=== PATIENT | female | born 1970 | race Hispanic/Latino ===

== ENCOUNTER → 2023-10-22 09:05 | Outpatient (REF) | payer OTHER, SELFPAY | LOC: HWRAD 09:05 | PROVIDERS: ATTENDING PHYSICIAN Family Medicine | DX: Z12.31 Encounter for screening mammogram for malignant neoplasm of breast (principal); R22.42 Localized swelling, mass and lump, left lower limb | CPT/HCPCS: 76882; 77063; 77067 ==

== ENCOUNTER 2023-11-17 18:52 | Emergency (ER) | payer OTHER, SELFPAY ==
[2023-11-17 18:54] VITALS: BP 143/98
[2023-11-17 19:16] VITALS: BP 144/94
[2023-11-17 19:18] VITALS: BP 144/94
[2023-11-17 19:21] VITALS: BMI 23.8
[2023-11-17] MEDS: NSS 1000 IV (19:36)
[2023-11-17 19:37] LABS: % Basophils 0.4 % (0-2); % Eosinophils 0.4 % (0-6); % Immature Granulocytes 0.4 % (0-0.5); % Lymphocytes 29.8 % (20.5-51.1); % Monocytes 5.4 % (1.7-9.3); % Neutrophils 63.6 % (42.2-75.2); Absolute Lymphocytes 2.2 10^3/uL (1.2-3.4); Absolute Monocytes 0.4 10^3/uL (0.1-0.6); Absolute Neutrophils 4.6 10^3/uL (1.4-6.5); Hematocrit 36.7 % (37.0-47.0); Hemoglobin 12.8 g/dL (12.0-16.0); Mean Corp Hgb Conc. 34.9 g/dL (33.0-37.0); Mean Corpuscular Hgb 31.2 pg (27.0-31.0); Mean Corpuscular Volume 89.5 fL (81.0-99.0); Mean Platelet Volume 9.6 fL (7.4-10.4); Nucleated Red Blood Cells % 0 %; Platelet Count 351 10^3/uL (130-400); Red Cell Dist. Width 11.8 % (11.5-14.5); White Blood Cell Count 7.3 10^3/uL (4.8-10.8)
--- NOTE | 2023-11-17 19:39 | ED.GENMED ---
History of Present Illness
General
Chief Complaint: Heart Rate Problem
Source: patient
Exam Limitations: none
Time Seen by Provider: 11/17/23 19:11
Travel History
Have you had any contact with someone who has COVID-19?: No
Do you have any symptoms of coronavirus? Fever > 100 degrees, chills, cough, shortness of breath, sore throat, loss of taste or smell, muscle aches, or headache?: No
History of Present Illness
History of Present Illness:
This is a 53 year old female that comes in with c/o elevated heart rate. States that this started about 1 hour ago. States that for the first time she took Propranolol 10mg which she had been ordered before and never took. Denies any fever, chills,
chest pain, SOB, abd pain, nausea, vomiting, diarrhea, headache, dizziness, urinary burning.
Past History
Past History
ED Past Medical History: GERD, Psychiatric (Anxiety) and Other (Palpitations, ); Negative Asthma, HTN, Hypercholesterolemia or NIDDM
ED Past Surgical History: Other (Partial Thyroidectomy Left side removed)
Patient has exhibited threatening behavior?: No
PSI?: No
Social History
Tobacco: Non-smoker
Alcohol: None
Drug: None
Personal:
Living: with family
Employment: Employed
Family History
Family History: Other
Review of Systems
Review of Systems
All Other Systems: ROS reviewed and negative except as documented in HPI and ROS
Constitutional: Reports no symptoms; Denies fever or chills
EENT: Reports no symptoms
Respiratory: Reports no symptoms; Denies cough or trouble breathing
Cardiac: Reports other (tachycardia); Denies chest pain
ABD/GI: Reports no symptoms; Denies abdominal pain, nausea, vomiting or diarrhea
: Reports no symptoms; Denies dysuria, frequency or urgency
Musculoskeletal: Reports no symptoms
Skin: Reports no symptoms
Neurological: Reports no symptoms; Denies dizzy or headache
Psychiatric: Reports no symptoms
Phy Exam
General Physical Exam
General Presentation: well appearing and no apparent distress
General age: appears stated age
General Skin: warm and dry
General Habitus: normal
General Mental: alert
General Hydration: dry mucous membranes
ENT Exam
ENT Exam: TM's normal, pharynx normal and neck supple
Eye Exam
Eye Exam: EOMI
Cardiovascular Exam
Cardiovascular Exam: no edema, no murmur, normal peripheral pulses and tachycardia
Pulmonary Exam
Pulmonary Exam: lungs clear, no respiratory distress, no rales, chest non tender, no crackles, no rhonchi, no wheezing and no cough
Gastrointestinal Exam
Gastrointestinal Exam: normal bowel sounds, non tender, soft, no organomegaly, no pulsatile mass and non distended
Musculoskeletal Exam
Musculoskeletal Exam: full ROM and no edema
Skin Exam
Skin Exam: normal color, warm/dry, no rash and no petechia
Psychiatric Exam
Psychiatric Exam: normal mood/affect
Course
Orders/Labs/Results
Orders:
Orders
11/17/23 18:53
Electrocardiogram (*1) Urgent
Reason for Study: Tachycardia
EKG- Treatment ONCE
11/17/23 19:22
0.9% Sodium Chloride 1000 ml [Nss] 1,000 ml IV BOLUS
11/17/23 19:31
Complete Blood Count/With Diff Urgent
Comprehensive Metabolic Panel Urgent
TSH Reflex To Free T4 Urgent
Abnormal Lab Results
11/17/23
19:31
RBC 4.10 L 10^6/uL
(4.20-5.40)
Hct 36.7 L %
(37.0-47.0)
MCH 31.2 H pg
(27.0-31.0)
Glucose 118 H mg/dl
(70-99)
Total Protein 8.4 H g/dl
(6.3-8.2)
11/17/23 19:31
11/17/23 19:31
Glucose nonfasting. Total protein slightly elevated. TSH normal at 3.63
Vital Signs
Initial and Last Documented VS:
Initial Vital Signs
Temp Pulse Resp BP Pulse Ox
97.7 F 118 16 143/98 99
11/17/23 18:54 11/17/23 18:54 11/17/23 18:54 11/17/23 18:54 11/17/23 18:54
Last Documented Vital Signs
Temp Pulse Resp BP Pulse Ox
97.7 F 104 17 144/94 100
11/17/23 18:54 11/17/23 19:18 11/17/23 19:18 11/17/23 19:18 11/17/23 19:18
MDM/Problems Addressed
Differential Diagnosis Includes:
tachycardia, Hypothyroid
MDM/Problems Addressed:
This is a 53 year old female that comes in with c/o of increased heart rate. State that this started 1 hour before arriving here. Patient was given Propranolol for his in the past but she never took.
Will check labs and monitor.
Back into see patient. Explained that her blood work is normal. Patients heart rate is 85. Encouraged patient to increase her water intake to 8-8oz glasses daily. Take her medication daily as prescribed. Follow up with the family doctor. Return with
any concerns.
Chronic conditions affecting care:
NA
Acute Exacerbation and/or Progression of Chronic Illness:
NA
*Pulse Oximetry
Patient hypoxic: no
*EKG
Interpreted by ED Provider?: Yes
Heart Rate: 109
Rate: tachycardiac
Rhythm: PVC's and sinus tachycardia
[place]: normal axis
Interval: normal interval
QRS Pattern: normal QRS
Ischemia: no ischemia
*Career Guidance Counselor Interpretation
Rate: normal
Heart Rate: 85
Rhythm: sinus
*Critical Care Note
Total Time (30-74mins, 75-104mins- exclusive of procedures): Not Applicable
ED Attending Note
-
Portions of this chart may have been created with voice recognition software.� Occasional wrong word or��sound alike� substitutions may have occurred due to the inherent limitations of voice recognition software.
Discharge Plan
Departure
Patient Disposition: Home (Routine Discharge)
Date of Disposition: 11/17/23
Time of Disposition: 21:13
Patient with high blood pressure during this ER visit?: Yes
Condition: Good
Covid-19: Not Applicable
Discharge Problem:
Sinus tachycardia
Instructions: Sinus Tachycardia (DC), BLOOD PRESSURE
Prescriptions:
No Action
prednisone 10 mg Tablet
See Rx Instructions .ROUTE .COMPLEX Qty: 30 0RF
Rx Instructions:
Take By Mouth:
40 mg daily x3 days, 30 mg daily x3 days,
20 mg daily x3 days, 10 mg daily x3 days.
oxycodone-acetaminophen [Percocet] 5-325 mg tablet
1 tab PO Q6HPRN PRN (Reason: pain) Qty: 7 0RF
Referrals:
Marky Ramirez Jr., MD [Family Provider] - Call in 1-3 days for appt
Activity Restrictions/Additional Instructions:
As discussed, your blood work is normal. You heart rate has come down most likely due to the fluid and the Propranolol. Please take your medication as prescribed. Follow up with the family doctor for recheck. Please increase your water intake to
8-8oz glasses daily. IF YOU HAVE ANY OTHER CONCERNS PLEASE RETURN TO THE EMERGENCY ROOM.
Interventions
Interventions:
*Risk Screen - Suicide Last Done: 11/17/23 18:54
*General Assessment Last Done: 11/17/23 18:54
*Neglect/Abuse Screening Last Done: 11/17/23 18:54
Discharge Date and Time
Print Language: CITIZEN OF [place]
[2023-11-17 19:49] LABS: ALT (SGPT) 15 U/L (0-35); AST (SGOT) 24 U/L (14-36); Albumin 4.9 g/dl (3.5-5.0); Alkaline Phosphatase 68 U/L (38-126); Blood Urea Nitrogen 16 mg/dl (7-17); Calcium 10.1 mg/dl (8.4-10.2); Carbon Dioxide 28 mmol/L (22-30); Chloride 101 mmol/L (98-107); Estimated Creatinine Clearance 69 ml/min; Glucose 118 mg/dl (70-99); Potassium 4.5 mmol/L (3.5-5.1); Sodium 135 mmol/L (135-145); Total Bilirubin 0.2 mg/dl (0.2-1.3); Total Protein 8.4 g/dl (6.3-8.2); eGFR > 60.00
[2023-11-17 20:09] VITALS: BP 132/84
[2023-11-17 20:22] LABS: TSH Reflex To Free T4 3.63 uIU/ml (0.47-4.68)
[2023-11-17 21:00] VITALS: BP 110/73
== END 2023-11-17 21:34 | disposition home or self-care (01) ==
LOC: EMR 18:52
PROVIDERS: Clinical Nurse Specialist Family Health; EMERGENCY PHYSICIAN Emergency Medicine; FAMILY PHYSICIAN Family Medicine
DX: R00.0 Tachycardia, unspecified (principal); I49.3 Ventricular premature depolarization; R03.0 Elevated blood-pressure reading, without diagnosis of hypertension
CPT/HCPCS: 99284; 96360; 80053; 84443; 85025; 93005

== ENCOUNTER 2023-12-22 21:00 | Emergency (ER) | payer OTHER, SELFPAY ==
[2023-12-22 21:08] VITALS: BP 134/77
[2023-12-22 21:27] VITALS: BP 105/69
[2023-12-22 21:45] VITALS: BMI 24.2
[2023-12-22 21:51] LABS: % Basophils 0.5 % (0-2); % Eosinophils 0.9 % (0-6); % Immature Granulocytes 0.3 % (0-0.5); % Lymphocytes 39.8 % (20.5-51.1); % Monocytes 8.3 % (1.7-9.3); % Neutrophils 50.2 % (42.2-75.2); Absolute Eosinophils 0.1 10^3/uL (0-0.7); Absolute Lymphocytes 3.2 10^3/uL (1.2-3.4); Absolute Monocytes 0.7 10^3/uL (0.1-0.6); Hematocrit 31.6 % (37.0-47.0); Hemoglobin 11.2 g/dL (12.0-16.0); Mean Corp Hgb Conc. 35.4 g/dL (33.0-37.0); Mean Corpuscular Hgb 31.5 pg (27.0-31.0); Mean Platelet Volume 9.6 fL (7.4-10.4); Nucleated Red Blood Cells % 0 %; Platelet Count 301 10^3/uL (130-400); Red Blood Cell Count 3.55 10^6/uL (4.20-5.40)
[2023-12-22 22:08] LABS: ALT (SGPT) 11 U/L (0-35); AST (SGOT) 20 U/L (14-36); Albumin 3.8 g/dl (3.5-5.0); Blood Urea Nitrogen 15 mg/dl (7-17); Carbon Dioxide 24 mmol/L (22-30); Estimated Creatinine Clearance 104 ml/min; Glucose 124 mg/dl (70-99); Total Bilirubin 0.3 mg/dl (0.2-1.3); Total Protein 6.8 g/dl (6.3-8.2); eGFR > 60.00
--- NOTE | 2023-12-22 22:15 | ED.GENMED ---
History of Present Illness
<RADHA Alvarenga - Last Filed: 12/22/23 23:12>
General
Chief Complaint: Heart Rate Problem
Source: patient, records and spouse
Time Seen by Provider: 12/22/23 21:58
Travel History
Have you had any contact with someone who has COVID-19?: No
Do you have any symptoms of coronavirus? Fever > 100 degrees, chills, cough, shortness of breath, sore throat, loss of taste or smell, muscle aches, or headache?: No
History of Present Illness
History of Present Illness:
53 year old female with hx of thyroid CA s/p L thryoidectomy 08/21 without sequelae not on thyroid medications who presents with 3 episodes of palpitations that occurred today. Pt reports 3 episodes of palpitations today lasting about 30 minutes,
last episode at 8 pm. During these episodes she feels anxious, heart is racing, feet are icy cold, and her mouth is dry. Reports generalized weakness and fatigue after the episodes. Denies dizziness, lightheadedness, head ache, vision changes, chest
pain, SOB, nausea, or vomiting. Denies any recent travel or recent illness. She has a hx of these episodes of palpitations and the episodes today feel similar. Last episode was on 11/17/23 and she was seen here. At the time, EKG, TSH, CBC, CMP were
unremarkable. She has had two prior episodes, one in July and another last year. Pt states she sees a cross tie tram loader. She had a Holter monitoring done last year which was normal. She last saw her cross tie tram loader 3 days ago, when she was prescribed
Metoprolol 50 mg daily, she took a dose today. Prior to that, she was on Propranolol 10 mg. She also is taking Escitalopram 20 mg daily which her PCP prescribed her for anxiety. She has been taking it for 2 weeks now.
Past History
<RADHA Alvarenga - Last Filed: 12/22/23 23:12>
Past History
ED Past Medical History: GERD, Psychiatric (Anxiety) and Other (Palpitations, ); Negative Asthma, HTN, Hypercholesterolemia or NIDDM
ED Past Surgical History: Other (Partial Thyroidectomy Left side removed)
Patient has exhibited threatening behavior?: No
PSI?: No
Social History
Tobacco: Non-smoker
Alcohol: None
Drug: None
Personal:
Living: with family
Employment: Employed
Family History
Family History: Other
Review of Systems
<RADHA Alvarenga - Last Filed: 12/22/23 23:12>
Review of Systems
Allergies reviewed?: Yes
All Other Systems: ROS reviewed and negative except as documented in HPI and ROS
Constitutional: Reports fatigue
EENT: Reports other (dry mouth)
Respiratory: Reports no symptoms
Cardiac: Reports palpitations
ABD/GI: Reports no symptoms
: Reports no symptoms
Musculoskeletal: Reports no symptoms
Skin: Reports no symptoms
Neurological: Reports no symptoms
Endocrine: Reports no symptoms
Hematologic/Lymphatic: Reports no symptoms
Psychiatric: Reports anxiety
Phy Exam
<ST LyleOR - Last Filed: 12/22/23 23:12>
General Physical Exam
General Presentation: no apparent distress and other (appears fatigued)
General age: appears stated age
General Skin: warm and dry
General Habitus: normal
General Mental: alert
General Hydration: appears well hydrated
Cardiovascular Exam
Cardiovascular Exam: regular rate/rhythm, no edema, no gallop, no murmur and normal peripheral pulses
Pulmonary Exam
Pulmonary Exam: lungs clear, no respiratory distress, no rales, no crackles, no rhonchi, no wheezing and no cough
Neurological Exam
Neurological Exam: alert and oriented x3
Skin Exam
Skin Exam: normal color and warm/dry
Psychiatric Exam
Psychiatric Exam: normal mood/affect
Course
<RADHA Alvarenga - Last Filed: 12/22/23 23:12>
Orders/Labs/Results
Orders:
Orders
12/22/23 21:01
Electrocardiogram (*1) Urgent
Reason for Study: Chest Pain
EKG- Treatment ONCE
12/22/23 21:46
CMP [Comprehensive Metabolic Panel] Urgent
Complete Blood Count/With Diff Urgent
Free T4 Urgent
TSH Reflex To Free T4 Urgent
Abnormal Lab Results
12/22/23
21:46
RBC 3.55 L 10^6/uL
(4.20-5.40)
Hgb 11.2 L g/dL
(12.0-16.0)
Hct 31.6 L %
(37.0-47.0)
MCH 31.5 H pg
(27.0-31.0)
Absolute Monos (auto) 0.7 H 10^3/uL
(0.1-0.6)
Creatinine 0.5 L mg/dL
(0.6-1.0)
Glucose 124 H mg/dl
(70-99)
TSH (Reflex) 4.77 H uIU/ml
(0.47-4.68)
12/22/23 21:46
12/22/23 21:46
Vital Signs
Initial and Last Documented VS:
Initial Vital Signs
Temp Pulse Resp BP Pulse Ox
97.7 F 77 19 134/77 100
12/22/23 21:08 12/22/23 21:08 12/22/23 21:08 12/22/23 21:08 12/22/23 21:08
Last Documented Vital Signs
Temp Pulse Resp BP Pulse Ox
97.7 F 75 15 105/69 100
12/22/23 21:08 12/22/23 22:45 12/22/23 22:45 12/22/23 21:27 12/22/23 22:45
<Iliana Dickinson, DO - Last Filed: 12/23/23 00:05>
Orders/Labs/Results
Orders:
Orders
12/22/23 21:01
Electrocardiogram (*1) Urgent
Reason for Study: Chest Pain
EKG- Treatment ONCE
12/22/23 21:46
CMP [Comprehensive Metabolic Panel] Urgent
Complete Blood Count/With Diff Urgent
Free T4 Urgent
TSH Reflex To Free T4 Urgent
Abnormal Lab Results
12/22/23
21:46
RBC 3.55 L 10^6/uL
(4.20-5.40)
Hgb 11.2 L g/dL
(12.0-16.0)
Hct 31.6 L %
(37.0-47.0)
MCH 31.5 H pg
(27.0-31.0)
Absolute Monos (auto) 0.7 H 10^3/uL
(0.1-0.6)
Creatinine 0.5 L mg/dL
(0.6-1.0)
Glucose 124 H mg/dl
(70-99)
TSH (Reflex) 4.77 H uIU/ml
(0.47-4.68)
12/22/23 21:46
12/22/23 21:46
Vital Signs
Initial and Last Documented VS:
Initial Vital Signs
Temp Pulse Resp BP Pulse Ox
97.7 F 77 19 134/77 100
12/22/23 21:08 12/22/23 21:08 12/22/23 21:08 12/22/23 21:08 12/22/23 21:08
Last Documented Vital Signs
Temp Pulse Resp BP Pulse Ox
97.7 F 75 15 105/69 100
12/22/23 21:08 12/22/23 22:45 12/22/23 22:45 12/22/23 21:27 12/22/23 22:45
<RADHA Alvarenga - Last Filed: 12/22/23 23:12>
MDM/Problems Addressed
Differential Diagnosis Includes:
anxiety/panic attack, hyperthyroidism, dehydration
MDM/Problems Addressed:
53 year old female who presents with 3 episodes of palpitations that occurred today.
Chronic conditions affecting care: Cancer (thyroid CA, s/p L thyroidectomy)
<RADHA Alvarenga - Last Filed: 12/22/23 23:12>
*Critical Care Note
Total Time (30-74mins, 75-104mins- exclusive of procedures): Not Applicable
<Iliana Dickinson DO - Last Filed: 12/23/23 00:05>
*Pulse Oximetry
Patient hypoxic: no
*EKG
Interpreted by ED Provider?: Yes
Interpretation: normal
Comparison EKG: changes noted (Sinus tachycardia and unifocal PVCs noted on EKG November 17, 2023 have since resolved.)
Rate: normal
Rhythm: sinus
[place]: normal axis
Interval: normal interval
QRS Pattern: normal QRS
Ischemia: no ischemia
*Risk Control Product Liability Director Interpretation
Rate: normal
Interpretation: normal
Rhythm: sinus
ED Attending Note
<RADHA Alvarenga - Last Filed: 12/22/23 23:12>
-
Portions of this chart may have been created with voice recognition software.� Occasional wrong word or��sound alike� substitutions may have occurred due to the inherent limitations of voice recognition software.
<Iliana Dickinson DO - Last Filed: 12/23/23 00:05>
ED Attending Note
Patient seen and examined by attending physician: Yes
I performed the substantive portion of visit, reviewed & personally made and approve the management plan that is documented in note by myself or JEOVANNY.: Yes
I performed a history and physical exam of patient and discussed management with resident, I reviewed resident's note and agree with documented findings and plan of care.: Yes
ED Attending Note:
This is a 53-year-old woman who has history of partial thyroidectomy early July of this year. Has not required thyroid replacement. She also has longstanding history of intermittent palpitations, rapid heartbeat with noted sinus tachycardia on
previous EKGs during ED visits here for similar complaints of palpitations December 2022, mid July 2023 at most recently 1 month ago.
She follows with a cross tie tram loader at [facility], Dr. Kevin Andre.
She reports undergoing an unremarkable event monitor 1 year ago and records reveal echocardiogram December 2022 showing mild LVH, trace MR, mild TR but otherwise unremarkable.
Due to recurrent palpitations she was started on metoprolol by cardiology approximately 2 weeks ago. Despite starting this medication she continues with intermittent palpitations, generally once every 1-2 days and today noticed 3 separate episodes
of palpitations which she describes as her heart beating rapidly and beating somewhat hard but no other associated symptoms. She denies dizziness or lightheadedness, denies chest pain or shortness of breath, denies diaphoresis, no nausea nor
vomiting. Palpitations this evening lasted about 30 minutes and resolved. Similar 10 to 30 minute palpitations earlier in the day.
Along with recent initiation of metoprolol, she was recently started on Lexapro by her PCP for anxiety issues.
Patient has remained asymptomatic since arrival to the ED.
She denies caffeine use, denies decongestant use, denies alcohol nor drug use.
She denies leg pain or swelling. No recent travel.
No history of thromboembolism and previous evaluations for thromboembolism have been unremarkable.
Thyroid function has remained within normal limits most recently 1 month ago.
No recent change in weight.
GENERAL: 53-year-old woman appears her stated age, bright and alert, pleasant, appears in no acute distress. is accompanying.
EYE: anicteric
NECK: Supple, nontender, no meningismus, no significant adenopathy. No JVD.
ENT: posterior pharynx is clear, oral mucosa is moist. No rhinorrhea.
CARDIAC: Regular rate and rhythm. no murmur. No rub.
LUNGS: Clear breath sounds bilaterally, no acute respiratory distress, no wheezes/rales/rhonchi
ABDOMEN: Soft, nondistended, without focal tenderness
NEUROLOGICAL: Alert and oriented x3, no focal neuro deficits. Gait is steady.
SKIN: Warm and dry, normal color, skin intact. No rash.
MUSCULOSKELETAL: No C/C/E. peripheral pulses are full and equal b/l. No palpable tenderness.
PSYCH: Normal and appropriate interaction.
Patient presents with intermittent palpitations, racing heartbeat. Symptoms have been intermittent but an ongoing issue for more than a year.
It is reassuring that she has had no other associated symptoms, no dizziness or lightheadedness, no chest pain nor shortness of breath.
Following with cardiology and recently started on a daily beta-lorraine. Despite the beta-lroraine however she has had ongoing episodes near daily with reported 3 brief episodes today.
Similar complaints noted during ED visit December 2022, mid July of this year as well as 1 month ago.
Unremarkable evaluations during those visits save for occasional sinus tachycardia noted on EKGs.
She remains asymptomatic since arrival to the ED.
EKG shows normal sinus rhythm, no acute abnormalities. Monitor shows normal sinus rhythm without ectopy.
Labs thus far unremarkable. Mild but stable anemia.
Unremarkable chemistries.
TSH is pending but was normal 1 month ago.
Patient has no risk factors no history of thromboembolism. No indication for radiologic studies.
Blood pressure is borderline low thus at this point would not recommend up titration of beta-lorraine.
I do however recommend she touch base with her cross tie tram loader on Saturday to discuss continued episodes of palpitations and arrange for follow-up visit. She may require additional event monitoring.
Discharge Plan
Departure
Patient Disposition: Home (Routine Discharge)
Date of Disposition: 12/22/23
Time of Disposition: 22:47
Patient with high blood pressure during this ER visit?: No
Condition: Good
Discharge Problem:
intermittent heart palpitations
Instructions: Palpitations (DC)
Prescriptions:
Discontinued
prednisone 10 mg Tablet
See Rx Instructions .ROUTE .COMPLEX Qty: 30 0RF
Rx Instructions:
Take By Mouth:
40 mg daily x3 days, 30 mg daily x3 days,
20 mg daily x3 days, 10 mg daily x3 days.
oxycodone-acetaminophen [Percocet] 5-325 mg tablet
1 tab PO Q6HPRN PRN (Reason: pain) Qty: 7 0RF
Referrals:
Marky Ramirez Jr., MD [Family Provider] -
Activity Restrictions/Additional Instructions:
Stay well-hydrated on a daily basis.
Continue current medications including metoprolol.
Call your cross tie tram loader on Saturday to discuss follow-up regarding recurrent palpitations/racing heartbeat.
Interventions
Interventions:
*Risk Screen - Suicide Last Done: 12/22/23 21:08
*General Assessment Last Done: 12/22/23 21:08
*Neglect/Abuse Screening Last Done: 12/22/23 21:08
ED- Fall Risk Assessment Last Done: 12/22/23 22:05
*ED COVID-19 Vaccine History Last Done: 12/22/23 21:08
*Nursing Disposition Last Done: 12/22/23 22:59
ED- Cardiac Assessment Last Done: 12/22/23 22:05
ED- Pulmonary Assessment Last Done: 12/22/23 22:05
Discharge Date and Time
Discharge Date/Time: 12/22/23 23:00
Print Language: [place]
[2023-12-22 22:20] LABS: Alkaline Phosphatase 54 U/L (38-126); Calcium 9.3 mg/dl (8.4-10.2); Chloride 106 mmol/L (98-107); Sodium 138 mmol/L (135-145)
[2023-12-22 22:39] LABS: TSH Reflex To Free T4 4.77 uIU/ml (0.47-4.68)
[2023-12-22 23:08] LABS: Free T4 0.97 ng/dl (0.78-2.19)
== END 2023-12-22 23:00 | disposition home or self-care (01) ==
LOC: EMR 21:00
PROVIDERS: Emergency Medicine; EMERGENCY PHYSICIAN Emergency Medicine; FAMILY PHYSICIAN Family Medicine
DX: R00.2 Palpitations (principal); R68.2 Dry mouth, unspecified; R53.83 Other fatigue; C73 Malignant neoplasm of thyroid gland; D64.9 Anemia, unspecified; F41.9 Anxiety disorder, unspecified; K21.9 Gastro-esophageal reflux disease without esophagitis
CPT/HCPCS: 99283; 80053; 84439; 84443; 85025; 93005

== ENCOUNTER 2024-04-29 09:38 | Emergency (ER) | payer SELFPAY ==
[2024-04-29 09:46] VITALS: BP 132/84
--- NOTE | 2024-04-29 10:27 | ED.GENMED ---
History of Present Illness
<Yumiko Holcomb PA-C - Last Filed: 04/29/24 17:42>
General
Chief Complaint: Heart Rate Problem
Source: patient
Exam Limitations: none
Time Seen by Provider: 04/29/24 10:12
Nursing documentation reviewed up to this point in time: agreed with
History of Present Illness
History of Present Illness:
Patient is a 53 year old female with history of thyroid cancer s/p thyroidectomy not on thyroid replacement presenting to the emergency department for evaluation of palpitations. Patients daughter is in room and translating for patient. Patient
states that around 8:30 AM she was sitting on the couch scrolling on her phone when she had about a 30-minute episode of what she describes as heart palpitations. During this time she states that she felt her heart was racing. She denies any
associated chest pain, shortness of breath, dizziness/lightheadedness, numbness/tingling, or headache. She denies any visual changes.
Symptoms have essentially improved at this time and patient is currently asymptomatic although feels somewhat tired as she was anxious during this episode
Patient does follow with cardiology in [place]. She takes metoprolol 50 mg every morning. She does have a history of similar palpitations in the past for which she has followed with cardiology and had a Holter monitor without abnormal findings.
Past History
<Yumiko Holcomb PA-C - Last Filed: 04/29/24 17:42>
Past History
ED Past Medical History: GERD, Psychiatric (Anxiety) and Other (Palpitations, ); Negative Asthma, HTN, Hypercholesterolemia or NIDDM
ED Past Surgical History: Other (Partial Thyroidectomy Left side removed)
Patient has exhibited threatening behavior?: No
PSI?: No
Social History
Tobacco: Non-smoker
Alcohol: None
Drug: None
Personal:
Living: with family
Employment: Employed
Family History
Family History: Other
Review of Systems
<Yumiko Holcomb PA-C - Last Filed: 04/29/24 17:42>
Review of Systems
Allergies reviewed?: Yes
All Other Systems: ROS reviewed and negative except as documented in HPI and ROS
Phy Exam
<Yumiko Holcomb PA-C - Last Filed: 04/29/24 17:42>
Physical Exam
Physical Exam:
Vitals: Patient's vital signs are stable. Afebrile
General: Patient is well appearing, no acute distress
Skin: Warm and dry, no rashes or lesions
Head: Normocephalic, atraumatic
Eyes: Sclera nonicteric. EOMs intact. No nystagmus.
Throat: Protecting airway
Neck: Normal ROM, no cervical spine tenderness, no meningismus
Cardiac: Regular rate and rhythm, no murmurs. Palpable and equal distal pulses in bilateral upper and lower extremities.
Pulm: Normal respiratory effort, no wheezes, rales, rhonchi heard on exam.
Abdomen: No abdominal tenderness.
Extremities: No evidence of cyanosis or edema.
Neuro: Grossly intact
Psychiatric: Normal affect.
Course
<Yumiko Holcomb PA-C - Last Filed: 04/29/24 17:42>
Orders/Labs/Results
Orders:
Orders
04/29/24 09:39
EKG [Electrocardiogram (*1)] Urgent
Reason for Study: Palpitations
EKG- Treatment ONCE
04/29/24 10:28
Test Result ONCE
04/29/24 10:50
Complete Blood Count/With Diff Urgent
Comprehensive Metabolic Panel Urgent
HCG, Serum Qualitative Screen Urgent
TSH Reflex To Free T4 Urgent
Abnormal Lab Results
04/29/24
10:50
WBC 4.2 L 10^3/uL
(4.8-10.8)
RBC 3.84 L 10^6/uL
(4.20-5.40)
Hgb 11.9 L g/dL
(12.0-16.0)
Hct 34.5 L %
(37.0-47.0)
Creatinine 0.5 L mg/dL
(0.6-1.0)
04/29/24 10:50
04/29/24 10:50
Vital Signs
Initial and Last Documented VS:
Initial Vital Signs
Temp Pulse Resp BP Pulse Ox
98.4 F 85 18 132/84 100
04/29/24 09:46 04/29/24 09:46 04/29/24 09:46 04/29/24 09:46 04/29/24 09:46
Last Documented Vital Signs
Temp Pulse Resp BP Pulse Ox
97.9 F 60 16 100/63 100
04/29/24 12:27 04/29/24 12:27 04/29/24 12:27 04/29/24 12:27 04/29/24 12:27
<Stephanie Zhu, - Last Filed: 04/29/24 11:27>
Orders/Labs/Results
Orders:
Orders
04/29/24 09:39
EKG [Electrocardiogram (*1)] Urgent
Reason for Study: Palpitations
EKG- Treatment ONCE
04/29/24 10:28
Test Result ONCE
04/29/24 10:50
Complete Blood Count/With Diff Urgent
Comprehensive Metabolic Panel Urgent
HCG, Serum Qualitative Screen Urgent
TSH Reflex To Free T4 Urgent
Abnormal Lab Results
04/29/24
10:50
WBC 4.2 L 10^3/uL
(4.8-10.8)
RBC 3.84 L 10^6/uL
(4.20-5.40)
Hgb 11.9 L g/dL
(12.0-16.0)
Hct 34.5 L %
(37.0-47.0)
Creatinine 0.5 L mg/dL
(0.6-1.0)
04/29/24 10:50
04/29/24 10:50
Vital Signs
Initial and Last Documented VS:
Initial Vital Signs
Temp Pulse Resp BP Pulse Ox
98.4 F 85 18 132/84 100
04/29/24 09:46 04/29/24 09:46 04/29/24 09:46 04/29/24 09:46 04/29/24 09:46
Last Documented Vital Signs
Temp Pulse Resp BP Pulse Ox
97.9 F 60 16 100/63 100
04/29/24 12:27 04/29/24 12:27 04/29/24 12:27 04/29/24 12:27 04/29/24 12:27
<Yumiko Holcomb PA-C - Last Filed: 04/29/24 17:42>
MDM/Problems Addressed
Differential Diagnosis Includes:
Not limited to: Cardiac arrhythmia, PVCs, paroxysmal atrial fibrillation, dehydration, viral illness, hyperthyroidism, etc.
MDM/Problems Addressed:
53-year-old female presenting for evaluation following 30-minute episode of heart palpitations while sitting on the couch earlier this morning. Patient asymptomatic at this time. No associated chest pain, shortness of breath,
dizziness/lightheadedness. Patient does have history of similar symptoms for which she takes metoprolol and follows with cardiology. She has had Holter monitor in the past without any abnormal findings. Patient's vital signs are stable on arrival
to emergency department. On my exam�patient is resting comfortably in no apparent distress. She is conversational and nontoxic. Heart with regular rate and rhythm, lungs are clear bilaterally. No lower extremity edema or swelling. Patient is
perfusing well. On clinical research monitor�patient appears to be in normal sinus rhythm with very occasional PVC. EKG obtained in triage shows normal sinus rhythm with no arrhythmias or acute ischemic changes. Will check basic labs. Given history of
thyroidectomy�will add on TSH. Will keep patient on clinical research monitor and reassess frequently. Unsure exact etiology of symptoms although patient does report that she felt anxious.
Chronic conditions affecting care:
Thyroid cancer s/p thyroidectomy
Acute Exacerbation and/or Progression of Chronic Illness:
N/A
<Yumiko Holcomb PA-C - Last Filed: 04/29/24 17:42>
*Pulse Oximetry
Patient hypoxic: no
*EKG
Interpreted by ED Provider?: Yes
EKG Intrepretation Date: 04/29/24
Interpretation: normal
Comparison EKG: no changes
Heart Rate: 83
Rate: normal
Rhythm: sinus
[place]: normal axis
Interval: normal interval
QRS Pattern: normal QRS
Ischemia: no ischemia
*Braid Folder Interpretation
Rate: normal
Interpretation: normal
Heart Rate: 78
Rhythm: sinus and PVC's
*Critical Care Note
Total Time (30-74mins, 75-104mins- exclusive of procedures): Not Applicable
<Yumiko Holcomb PA-C - Last Filed: 04/29/24 17:42>
Update Note
Update Note:
Update 11:55 AM: Labs reviewed. No clinically significant abnormalities. Thyroid level is normal. test negative. Into reassess patient at bedside and she remains asymptomatic in no apparent distress no indication for admission.
Patient stable for discharge�will recommend cardiology follow-up outpatient. Return precautions discussed. Patient comfortable with discharge. Patient seen with attending physician.
ED Attending Note
<Yumiko Holcomb PA-C - Last Filed: 04/29/24 17:42>
-
Portions of this chart may have been created with voice recognition software.� Occasional wrong word or��sound alike� substitutions may have occurred due to the inherent limitations of voice recognition software.
<Stephanie Zhu DO - Last Filed: 04/29/24 11:27>
ED Attending Note
Patient seen and examined by attending physician: Yes
I performed the substantive portion of visit, reviewed & personally made and approve the management plan that is documented in note by myself or JEOVANNY.: Yes
I performed a history and physical exam of patient and discussed management with resident, I reviewed resident's note and agree with documented findings and plan of care.: Yes
ED Attending Note:
53-year-old female without significant past medical history presenting to the emergency department for palpitations. Patient reports she was sitting on her couch prior to arrival and had about 30 minutes of palpitations. Symptoms have since
resolved. Denies any present palpitations, shortness of breath, chest pain, dizziness. Reports similar symptoms in the past. She has been seen and evaluated by cardiology in the past, is on metoprolol. Also reports history of Holter monitor.
Denies any history of blood clots, recent surgery, recent travel, exogenous estrogen. Does note history of hypothyroidism. Denies fever or cough. Vital signs on arrival are normal.
On exam patient is well-appearing, no acute distress or discomfort. Unremarkable cardiac and pulmonary exam, currently normal heart rate. EKG obtained on arrival, nonischemic, no signs of arrhythmia. And cardiac and pulmonary exam. Unclear
etiology of preceding palpitations. Patient does note that she felt anxious during them. However, currently resolved. Will screen with laboratory analysis and TSH with likely plan for outpatient continued cardiac workup for possible repeat Holter
monitoring.
Discharge Plan
Departure
Patient Disposition: Home (Routine Discharge)
Date of Disposition: 04/29/24
Time of Disposition: 12:01
Patient with high blood pressure during this ER visit?: No
Condition: Good
Covid-19: Not Applicable
Discharge Problem:
History of palpitations
Instructions: Palpitations (DC)
Referrals:
Marky Ramirez Jr., MD [Family Provider] - Follow up in 1 week
Activity Restrictions/Additional Instructions:
RETURN TO THE EMERGENCY DEPARTMENT WITH ANY CHEST PAIN, SHORTNESS OF BREATH, PERSISTENT PALPITATIONS, DIZZINESS/LIGHTHEADEDNESS, WORSENING IN CURRENT SYMPTOMS, OR ANY OTHER CONCERNS
-As discussed that she should continue to take her medications as prescribed. Is important you stay well-hydrated.
-You should follow-up with cardiology for further evaluation/management
Monitor your symptoms closely and return to the emergency department with any acute worsening/new symptoms
Interventions
Interventions:
*Risk Screen - Suicide Last Done: 04/29/24 09:46
*General Assessment Last Done: 04/29/24 09:46
*Neglect/Abuse Screening Last Done: 04/29/24 09:46
ED- Fall Risk Assessment Last Done: 04/29/24 10:45
*ED COVID-19 Vaccine History Last Done: 04/29/24 10:53
*Nursing Disposition Last Done: 04/29/24 12:27
ED- Cardiac Assessment Last Done: 04/29/24 10:44
ED- Pulmonary Assessment Last Done: 04/29/24 10:44
Discharge Date and Time
Discharge Date/Time: 04/29/24 12:31
Print Language: TRINIDADIAN
[2024-04-29 10:52] VITALS: BMI 25.6
[2024-04-29 11:02] LABS: % Basophils 0.7 % (0-2); % Eosinophils 1.2 % (0-6); % Immature Granulocytes 0.2 % (0-0.5); % Lymphocytes 31.8 % (20.5-51.1); % Monocytes 8.3 % (1.7-9.3); % Neutrophils 57.8 % (42.2-75.2); Absolute Eosinophils 0.1 10^3/uL (0-0.7); Absolute Lymphocytes 1.4 10^3/uL (1.2-3.4); Absolute Monocytes 0.4 10^3/uL (0.1-0.6); Absolute Neutrophils 2.5 10^3/uL (1.4-6.5); Hematocrit 34.5 % (37.0-47.0); Hemoglobin 11.9 g/dL (12.0-16.0); Mean Corp Hgb Conc. 34.5 g/dL (33.0-37.0); Mean Corpuscular Volume 89.8 fL (81.0-99.0); Mean Platelet Volume 10.1 fL (7.4-10.4); Nucleated Red Blood Cells % 0 %; Platelet Count 286 10^3/uL (130-400); Red Blood Cell Count 3.84 10^6/uL (4.20-5.40); Red Cell Dist. Width 12.2 % (11.5-14.5); White Blood Cell Count 4.2 10^3/uL (4.8-10.8)
[2024-04-29 11:17] LABS: ALT (SGPT) 15 U/L (0-35); AST (SGOT) 22 U/L (14-36); Albumin 4.2 g/dl (3.5-5.0); Alkaline Phosphatase 40 U/L (38-126); Blood Urea Nitrogen 10 mg/dl (7-17); Calcium 9.3 mg/dl (8.4-10.2); Carbon Dioxide 25 mmol/L (22-30); Chloride 101 mmol/L (98-107); Estimated Creatinine Clearance 96 ml/min; Glucose 94 mg/dl (70-99); HCG, Serum Qualitative Screen Negative; Potassium 4.3 mmol/L (3.5-5.1); Sodium 137 mmol/L (135-145); Total Bilirubin 0.4 mg/dl (0.2-1.3); Total Protein 6.9 g/dl (6.3-8.2); eGFR > 60.00
[2024-04-29 11:47] LABS: TSH Reflex To Free T4 2.35 uIU/ml (0.47-4.68)
[2024-04-29 12:27] VITALS: BP 100/63
== END 2024-04-29 12:31 | disposition home or self-care (01) ==
LOC: EMR 09:38
PROVIDERS: Physician Assistant; EMERGENCY PHYSICIAN Student in an Organized Health Care Education/Training Program; FAMILY PHYSICIAN Family Medicine
DX: R00.2 Palpitations (principal); F41.9 Anxiety disorder, unspecified; K21.9 Gastro-esophageal reflux disease without esophagitis; E89.0 Postprocedural hypothyroidism; Z85.850 Personal history of malignant neoplasm of thyroid; Z86.16 Personal history of COVID-19
CPT/HCPCS: 99283; 80053; 84443; 84703; 85025; 93005

== ENCOUNTER → 2024-09-17 14:28 | Outpatient (REF) | payer OTHER, SELFPAY | LOC: HWRAD 14:28 | PROVIDERS: ATTENDING PHYSICIAN Family Medicine | DX: M54.50 Low back pain, unspecified (principal) | CPT/HCPCS: 72110 ==

== ENCOUNTER → 2025-02-10 07:57 | Outpatient (REF) | payer OTHER, SELFPAY | LOC: HWWDC 07:57 | PROVIDERS: ATTENDING PHYSICIAN Family Medicine | DX: Z12.31 Encounter for screening mammogram for malignant neoplasm of breast (principal) | CPT/HCPCS: 77063; 77067 ==

== ENCOUNTER → 2025-02-22 09:54 | Outpatient (REF) | payer OTHER, SELFPAY | LOC: WDC 09:54 | PROVIDERS: ATTENDING PHYSICIAN Family Medicine | DX: R92.8 Other abnormal and inconclusive findings on diagnostic imaging of breast (principal) | CPT/HCPCS: 76642 ==